=== PATIENT | female | born 1960 | race Hispanic/Latino ===

== ENCOUNTER 2019-10-13 14:19 | Emergency (ER) | payer OTHER ==
[~2019-10-13] VITALS: Ht 157.5 cm; Wt 106.6 kg
[2019-10-13] MEDS ORDERED: HYDROCODONE/APAP 7.5MG-325MG 1 EA TAB PO ONE (14:30)
--- NOTE | 2019-10-13 16:03 | Diagnostic Imaging Report ---
EXAMINATION: SHOULDER RIGHT COMPLETE, HUMERUS RIGHT 2+VIEWS, ANKLE 3+ VIEWS LEFT INDICATION: Trauma COMPARISON: None FINDINGS: Right shoulder: No acute fracture or dislocation. Alignment appears anatomic. Mild acromioclavicular degenerative changes. Visualized portions of the right lung are clear. Right humerus: No acute fracture or dislocation. Alignment appears anatomic. Soft tissues appear unremarkable. Left ankle: Mildly displaced acute fracture of the distal fibula with an avulsion component of the distal fibular tip. The ankle mortise remains intact and symmetric. Small ankle joint effusion. Circumferential ankle soft tissue swelling. IMPRESSION: Mildly displaced left distal fibular fracture with overlying circumstantial left ankle soft tissue swelling and associated ankle joint effusion. Signed by: Kvng Deras MD on 10/13/2019 4:00 PM
--- NOTE | 2019-10-13 16:03 | Diagnostic Imaging Report ---
EXAMINATION: SHOULDER RIGHT COMPLETE, HUMERUS RIGHT 2+VIEWS, ANKLE 3+ VIEWS LEFT INDICATION: Trauma COMPARISON: None FINDINGS: Right shoulder: No acute fracture or dislocation. Alignment appears anatomic. Mild acromioclavicular degenerative changes. Visualized portions of the right lung are clear. Right humerus: No acute fracture or dislocation. Alignment appears anatomic. Soft tissues appear unremarkable. Left ankle: Mildly displaced acute fracture of the distal fibula with an avulsion component of the distal fibular tip. The ankle mortise remains intact and symmetric. Small ankle joint effusion. Circumferential ankle soft tissue swelling. IMPRESSION: Mildly displaced left distal fibular fracture with overlying circumstantial left ankle soft tissue swelling and associated ankle joint effusion. Signed by: vKng Deras MD on 10/13/2019 4:00 PM
== END 2019-10-13 16:59 | disposition home or self-care (01) ==
LOC: ER 14:19
DX: S82.832A Other fracture of upper and lower end of left fibula, initial encounter for closed fracture (principal); S40.011A Contusion of right shoulder, initial encounter; W01.0XXA Fall on same level from slipping, tripping and stumbling without subsequent striking against object, initial encounter; Y93.K1 Activity, walking an animal; Y92.89 Other specified places as the place of occurrence of the external cause; I10 Essential (primary) hypertension; E11.9 Type 2 diabetes mellitus without complications; E78.5 Hyperlipidemia, unspecified; E66.01 Morbid (severe) obesity due to excess calories
CPT/HCPCS: 99283

== ENCOUNTER 2021-02-28 13:10 | Emergency (ER) | payer OTHER ==
[2021-02-28] MEDS ORDERED: CEFEPIME 1 GM in SODIUM CHLORIDE 0.9% 50ML 50 ML IV ONE (13:15)
[2021-02-28] MEDS ORDERED: SODIUM CHLORIDE 0.9% 1000ML 2,000 ML ONE (13:27)
[2021-02-28] MEDS ORDERED: SODIUM CHLORIDE 0.9% 1000ML 1,000 ML IV SCH (13:45)
[2021-02-28 14:51] LABS: ALBUMIN 2.7 g/dL (3.5-5.0); ALBUMIN/GLOBULIN RATIO 0.6 (0.8-2.0); ANION GAP 22.3 mmol/L (8-16); B-TYPE NATRIURETIC PEPTIDE2 20.3 pg/mL (0-100); CALCIUM 8.7 mg/dL (8.4-10.2); CREATININE, SERUM 2.44 mg/dL (0.57-1.11); POTASSIUM 5.3 mmol/L (3.5-5.1)
[2021-02-28 15:33] LABS: BASOPHILS # (AUTO) 0.1 (0.0-0.1); BASOPHILS % 0.6 % (0.0-1.0); EOSINOPHILS # (AUTO) 0.2 (0.0-0.4); EOSINOPHILS % 1.9 % (0.0-6.0); HEMATOCRIT 37.7 % (34.2-44.1); HEMOGLOBIN 11.5 g/dL (12.0-16.0); LYMPHOCYTES % 12.3 % (18.0-39.1); MEAN CORPUSCULAR HEMOGLOBIN 25.6 pg (28-32); MEAN CORPUSCULAR HGB CONC 30.5 g/dL (31-35); MEAN CORPUSCULAR VOLUME 83.8 fL (81-99); MONOCYTES % 11.9 % (4.4-11.3); NEUTROPHILS % 72.4 % (38.7-80.0); PLATELET COUNT 324 x10e3/uL (140-360); RED CELL DISTRIBUTION WIDTH 20.1 % (11.7-14.4)
[2021-02-28 15:41] LABS: CLARITY,URINE SL CLOUDY (CLEAR); COLOR,URINE YELLOW (YELLOW); KETONES,URINE TRACE (NEGATIVE); LEUKOCYTE ESTERASE ,URINE NEGATIVE (NEGATIVE); NITRITE,URINE NEGATIVE (NEGATIVE); PROTEIN,URINE DIPSTICK 1+ (NEGATIVE); URINE UROBILINOGEN 0.2 mg/dL (0.2 - 1)
[2021-02-28 15:54] LABS: AMORPHOUS SEDIMENT,URINE MODERATE (FEW); BACTERIA,URINE MODERATE /HPF; EPITHELIAL CELLS,URINE MODERATE /LPF; RBC,URINE 0-5 /HPF (0-5)
[2021-02-28 16:02] LABS: CREATINE KINASE MB 2.2 ng/mL (0-5.0)
== END 2021-02-28 19:40 | disposition other institution (70) ==
LOC: ER 13:10
DX: R07.9 Chest pain, unspecified (principal); R06.02 Shortness of breath; R10.31 Right lower quadrant pain; R11.0 Nausea; R60.9 Edema, unspecified; N28.89 Other specified disorders of kidney and ureter; J90 Pleural effusion, not elsewhere classified
CPT/HCPCS: 36415; 74176; 80053; 81001; 82550; 82553; 83605; 83880; 84484; 85025; 87040; 87086; 93005; 99284; J0692; J7030

== ENCOUNTER 2021-04-19 13:27 | Inpatient (IN) | payer OTHER ==
[~2021-04-19] VITALS: Ht 157.5 cm; Wt 84.8 kg
[2021-04-19 14:22] LABS: BASOPHILS % 0.5 % (0.0-1.0); HEMATOCRIT 23.1 % (34.2-44.1); HEMOGLOBIN 7.1 g/dL (12.0-16.0); LYMPHOCYTES # (AUTO) 0.5 (1.0-3.2); LYMPHOCYTES % 7.8 % (18.0-39.1); MEAN CORPUSCULAR HEMOGLOBIN 26.2 pg (28-32); MEAN CORPUSCULAR HGB CONC 30.7 g/dL (31-35); MEAN CORPUSCULAR VOLUME 85.2 fL (81-99); MONOCYTES # (AUTO) 0.4 (0.2-0.8); MONOCYTES % 6.2 % (4.4-11.3); NEUTROPHILS # (AUTO) 4.7 (2.1-6.9); NEUTROPHILS % 78.9 % (38.7-80.0); PLATELET COUNT 462 x10e3/uL (140-360); RED BLOOD COUNT 2.71 x10e6/uL (3.6-5.1); RED CELL DISTRIBUTION WIDTH 20.9 % (11.7-14.4)
[2021-04-19] MEDS ORDERED: ENOXAPARIN SODIUM INJ 100 MG/ML SYR SC SCH (14:30)
[2021-04-19 14:42] LABS: ALBUMIN 2.4 g/dL (3.5-5.0); ALBUMIN/GLOBULIN RATIO 0.6 (0.8-2.0); CALCIUM 8.2 mg/dL (8.4-10.2); CREATININE, SERUM 1.37 mg/dL (0.57-1.11)
[2021-04-19] MEDS ORDERED: SODIUM CHLORIDE 0.9% 1000ML 1,000 ML IV STA (14:47)
[2021-04-19 14:49] LABS: CREATINE KINASE MB 1.5 ng/mL (0-5.0)
[2021-04-19] MEDS ORDERED: CEFEPIME 1 GM in SODIUM CHLORIDE 0.9% 50ML 50 ML IV ONE (15:00)
[2021-04-19 15:11] LABS: INR 1.11; PROTHROMBIN TIME 14.5 seconds (11.9-14.5)
[2021-04-19 15:12] LABS: PARTIAL THROMBOPLASTIN TIME 44.5 seconds (23.8-35.5)
[2021-04-19] MEDS ORDERED: Vancomycin IV 1 GM in SODIUM CHLORIDE 0.9% 250ML 250 ML IV ONE (16:00)
[2021-04-19] MEDS ORDERED: IOPAMIDOL 370 MG/ML 200 ML INFUS..BTL INJ ONE (16:04)
[2021-04-19] MEDS ORDERED: SODIUM CHLORIDE 0.9% 50ML 50 ML ONE (16:04)
[2021-04-19] MEDS ORDERED: SODIUM CHLORIDE FLUSH 10 ML SYR INJ PRN (16:15)
[2021-04-19] MEDS ORDERED: ASPIRIN 81 MG CHEW TAB PO ONE (16:15)
[2021-04-19] MEDS ORDERED: ONDANSETRON HCL INJ 2MG/ML 2ML 2 MG/ML VIAL IV PRN (16:15)
[2021-04-19 18:31] LABS: CREATINE KINASE MB 1.7 ng/mL (0-5.0)
[2021-04-19 20:00] VITALS: BP 123/64
[2021-04-19 20:02] LABS: FERRITIN 945.69 ng/mL (4.63-204.00)
[2021-04-19] MEDS ORDERED: SODIUM CHLORIDE 0.9% 250ML 250 ML ONE (20:45)
[2021-04-19] MEDS: ACETAMINOPHEN 325 MG TAB PO PRN (20:52)
[2021-04-19] MEDS: ATORVASTATIN 40 MG TAB PO SCH (20:52)
[2021-04-19] MEDS ORDERED: ZOLPIDEM TARTRATE 5 MG TAB PO PRN (21:00)
[2021-04-19 21:02] LABS: LYMPHOCYTES % (MANUAL) 5 % (19-48); MONOCYTES % (MANUAL) 3 % (3.4-9.0); NEUTROPHILS % (MANUAL) 90 % (40-74)
[2021-04-19 21:03] LABS: HYPOCHROMASIA MODERATE; PLATELET ESTIMATE ADEQUATE; PLATELET MORPHOLOGY COMMENT NORMAL; RBC MORPHOLOGY COMMENT NORMAL
[2021-04-19 22:30] VITALS: BP 123/64
[2021-04-20] VITALS (8 sets, daily range): BP systolic 98–155; BP diastolic 55–88
[2021-04-20] MEDS ORDERED: BUMETANIDE1 MG PO (02:37)
[2021-04-20] MEDS ORDERED: ACYCLOVIR200 MG PO (02:37)
[2021-04-20] MEDS ORDERED: PANTOPRAZOLE SO20 MG PO (02:42)
[2021-04-20] MEDS ORDERED: ATORVASTATIN CA20 MG PO (02:42)
[2021-04-20] MEDS ORDERED: PREDNISONE50 MG PO (02:42)
[2021-04-20] MEDS ORDERED: ZARXIO480 MCG/0. INJ (02:44)
[2021-04-20] MEDS ORDERED: LANTUS 3ML100 UNITS/ SC (02:44)
[2021-04-20 03:29] LABS: CREATINE KINASE MB 2.1 ng/mL (0-5.0)
[2021-04-20] MEDS: CEFEPIME 1 GM in SODIUM CHLORIDE 0.9% 50ML 50 ML IV SCH ×2 (03:48→14:38)
[2021-04-20 04:55] LABS: BASOPHILS % 0.4 % (0.0-1.0); EOSINOPHILS % 0.4 % (0.0-6.0); LYMPHOCYTES # (AUTO) 0.2 (1.0-3.2); LYMPHOCYTES % 2.1 % (18.0-39.1); MEAN CORPUSCULAR HEMOGLOBIN 26.2 pg (28-32); MEAN CORPUSCULAR HGB CONC 31.1 g/dL (31-35); MEAN CORPUSCULAR VOLUME 84.3 fL (81-99); MONOCYTES # (AUTO) 0.2 (0.2-0.8); MONOCYTES % 2.9 % (4.4-11.3); NEUTROPHILS # (AUTO) 7.3 (2.1-6.9); NEUTROPHILS % 90.7 % (38.7-80.0); PLATELET COUNT 489 x10e3/uL (140-360); RED BLOOD COUNT 2.48 x10e6/uL (3.6-5.1); RED CELL DISTRIBUTION WIDTH 20.7 % (11.7-14.4)
[2021-04-20 04:59] LABS: HEMATOCRIT 20.9 % (34.2-44.1); HEMOGLOBIN 6.5 g/dL (12.0-16.0)
[2021-04-20 05:22] LABS: ALBUMIN/GLOBULIN RATIO 0.6 (0.8-2.0); ANION GAP 12.5 mmol/L (8-16); CALCIUM 7.8 mg/dL (8.4-10.2); CREATININE, SERUM 1.19 mg/dL (0.57-1.11); POTASSIUM 3.5 mmol/L (3.5-5.1)
[2021-04-20 07:32] LABS: BAND NEUTROPHILS % (MANUAL) 1 %; MONOCYTES % (MANUAL) 3 % (3.4-9.0); MYELOCYTES % (MANUAL) 1 % (0-0); NEUTROPHILS % (MANUAL) 95 % (40-74)
[2021-04-20 07:33] LABS: ANISOCYTOSIS MODERATE; HYPOCHROMASIA MODERATE; MICROCYTOSIS MODERATE; OVALOCYTES FEW; PLATELET ESTIMATE ADEQUATE; PLATELET MORPHOLOGY COMMENT NORMAL; RBC MORPHOLOGY COMMENT ABNORMAL
[2021-04-20] MEDS ORDERED: SODIUM CHLORIDE 0.9% 250ML 250 ML IV ONE (08:00)
[2021-04-20] MEDS ORDERED: FUROSEMIDE INJ 10 MG/ML 2 ML VIAL IV PRN (08:00)
[2021-04-20] MEDS: METOPROLOL TARTRATE 25 MG TAB PO SCH ×2 (08:56→18:44)
[2021-04-20] MEDS ORDERED: ASPIRIN 325 MG TAB EC PO SCH (09:00)
[2021-04-20] MEDS ORDERED: SODIUM CHLORIDE 0.9% 250ML 250 ML ONE (09:56)
[2021-04-20] MEDS: ACETAMINOPHEN 325 MG TAB PO PRN (11:05)
[2021-04-20 11:35] LABS: CREATINE KINASE MB 2.2 ng/mL (0-5.0)
[2021-04-20] MEDS: ENOXAPARIN SOD INJ 40 MG/0.4 ML SYR SC SCH (14:38)
[2021-04-20] MEDS: ATORVASTATIN 40 MG TAB PO SCH (21:01)
[2021-04-21] VITALS (8 sets, daily range): BP systolic 111–148; BP diastolic 67–86
[2021-04-21 02:05] LABS: % IRON SATURATION 12 % (15-50); IRON 19 ug/dL (50-170); TOTAL IRON BINDING CAPACITY 154 ug/dL (261-478); TRANSFERRIN 110 mg/dL (180-382)
[2021-04-21] MEDS: CEFEPIME 1 GM in SODIUM CHLORIDE 0.9% 50ML 50 ML IV SCH ×2 (03:41→15:12)
[2021-04-21 04:56] LABS: BASOPHILS % 0.6 % (0.0-1.0); EOSINOPHILS # (AUTO) 0.1 (0.0-0.4); EOSINOPHILS % 1.4 % (0.0-6.0); HEMATOCRIT 27.3 % (34.2-44.1); HEMOGLOBIN 8.8 g/dL (12.0-16.0); LYMPHOCYTES # (AUTO) 0.5 (1.0-3.2); MEAN CORPUSCULAR HEMOGLOBIN 27.4 pg (28-32); MEAN CORPUSCULAR HGB CONC 32.2 g/dL (31-35); MONOCYTES # (AUTO) 0.5 (0.2-0.8); MONOCYTES % 7.9 % (4.4-11.3); PLATELET COUNT 453 x10e3/uL (140-360); RED BLOOD COUNT 3.21 x10e6/uL (3.6-5.1); RED CELL DISTRIBUTION WIDTH 18.9 % (11.7-14.4)
[2021-04-21 05:22] LABS: ANION GAP 14.7 mmol/L (8-16); CALCIUM 7.9 mg/dL (8.4-10.2); CREATININE, SERUM 1.13 mg/dL (0.57-1.11); POTASSIUM 3.7 mmol/L (3.5-5.1)
[2021-04-21] MEDS: METOPROLOL TARTRATE 25 MG TAB PO SCH ×2 (10:06→16:53)
[2021-04-21] MEDS ORDERED: DEXTROSE 50% SYRINGE 50 ML IV PRN (10:45)
[2021-04-21] MEDS: INSULIN REGULAR, HUMAN 100 UNIT/1 ML SQ SCH ×3 (12:04→21:00)
[2021-04-21] MEDS: ACETAMINOPHEN 325 MG TAB PO PRN (14:14)
[2021-04-21] MEDS: ENOXAPARIN SOD INJ 40 MG/0.4 ML SYR SC SCH (14:17)
[2021-04-21] MEDS: ATORVASTATIN 40 MG TAB PO SCH (21:37)
[2021-04-22 00:38] VITALS: BP 146/87
[2021-04-22] MEDS: ACETAMINOPHEN 325 MG TAB PO PRN ×2 (02:54→09:54)
[2021-04-22] MEDS: CEFEPIME 1 GM in SODIUM CHLORIDE 0.9% 50ML 50 ML IV SCH (02:54)
[2021-04-22 04:00] VITALS: BP 134/74
[2021-04-22 04:51] LABS: BASOPHILS % 0.6 % (0.0-1.0); EOSINOPHILS # (AUTO) 0.1 (0.0-0.4); EOSINOPHILS % 1.7 % (0.0-6.0); HEMATOCRIT 28.1 % (34.2-44.1); LYMPHOCYTES # (AUTO) 0.4 (1.0-3.2); LYMPHOCYTES % 5.8 % (18.0-39.1); MEAN CORPUSCULAR HEMOGLOBIN 27.3 pg (28-32); MEAN CORPUSCULAR VOLUME 85.2 fL (81-99); MONOCYTES # (AUTO) 0.5 (0.2-0.8); MONOCYTES % 7.1 % (4.4-11.3); NEUTROPHILS % 79.3 % (38.7-80.0); PLATELET COUNT 478 x10e3/uL (140-360)
[2021-04-22] MEDS: INSULIN REGULAR, HUMAN 100 UNIT/1 ML SQ SCH ×2 (07:30→12:09)
[2021-04-22 08:03] VITALS: BP 134/81
[2021-04-22 08:50] VITALS: BP 134/81
[2021-04-22] MEDS: METOPROLOL TARTRATE 25 MG TAB PO SCH (09:46)
[2021-04-22 12:23] VITALS: BP 137/80
[2021-04-22] MEDS: ENOXAPARIN SOD INJ 40 MG/0.4 ML SYR SC SCH (14:12)
[2021-04-22] MEDS ORDERED: INSULIN GLARGINE SC SCH (14:30)
[2021-04-22] MEDS ORDERED: METOPROLOL TART25 MG PO (16:02)
[2021-04-22] MEDS ORDERED: ZITHROMAX250 MG PO (16:02)
[2021-04-22] MEDS ORDERED: CEFUROXIME500 MG PO (16:04)
[2021-04-22] MEDS ORDERED: ATORVASTATIN 20 MG TAB PO SCH (21:00)
[2021-04-22] MEDS ORDERED: INSULIN GLARGINE 100 UNITS/ML VIAL SQ SCH (21:00)
[2021-04-23] MEDS ORDERED: PANTOPRAZOLE SOD 40 MG TABEC PO SCH (07:30)
[2021-04-23] MEDS ORDERED: BUMETANIDE 1 MG TAB PO SCH (09:00)
[2021-04-23] MEDS ORDERED: PANTOPRAZOLE SODIUM 20 MG PO SCH (09:00)
[2021-04-23] MEDS ORDERED: PREDNISONE 20 MG TAB PO SCH (09:00)
[2021-04-23] MEDS ORDERED: ACYCLOVIR 200 MG CAP PO SCH (09:00)
== END 2021-04-22 16:24 | disposition home or self-care (01) | DRG 871 ==
LOC: ER 13:43 → ERHOLD 16:22 → MED/SURG2 19:43
PROVIDERS: ADMIT Internal Medicine; ATTEND Internal Medicine
PROC: 30243N1 Transfusion of Nonautologous Red Blood Cells into Central Vein, Percutaneous Approach (ICD-10-PCS; principal; 2021-04-19)
DX: A41.9 Sepsis, unspecified organism (principal); J96.01 Acute respiratory failure with hypoxia; J18.9 Pneumonia, unspecified organism; L03.116 Cellulitis of left lower limb; L03.115 Cellulitis of right lower limb; D62 Acute posthemorrhagic anemia; E87.2 Acidosis; I24.9 Acute ischemic heart disease, unspecified; E11.22 Type 2 diabetes mellitus with diabetic chronic kidney disease; I12.9 Hypertensive chronic kidney disease with stage 1 through stage 4 chronic kidney disease, or unspecified chronic kidney disease; N18.30 Chronic kidney disease, stage 3 unspecified; Z85.72 Personal history of non-Hodgkin lymphomas; E11.21 Type 2 diabetes mellitus with diabetic nephropathy; D63.8 Anemia in other chronic diseases classified elsewhere; R77.1 Abnormality of globulin; E11.65 Type 2 diabetes mellitus with hyperglycemia; G47.00 Insomnia, unspecified; E66.01 Morbid (severe) obesity due to excess calories; Z68.34 Body mass index [BMI] 34.0-34.9, adult; Z20.822 Contact with and (suspected) exposure to COVID-19
CPT/HCPCS: 36415; 71260; 76770; 80048; 80053; 82270; 82550; 82553; 82607; 82728; 82746; 82948; 83540; 83605; 84466; 84484; 85025; 85045; 85610; 85730; 86850; 86900; 86920; 87040; 93005; 93306; 96361; 96365; 96366; 99285; J0456; J0692; J1650; J1817; J1940; J3370; J7030; J7050; P9016; Q9967; U0002